=== PATIENT | female | born 1965 | race Caucasian/White ===

== ENCOUNTER 2018-01-03 12:56 | Emergency (ER) | payer OTHER ==
[~2018-01-03] VITALS: Ht 175.3 cm; Wt 113.4 kg
[2018-01-03] MEDS ORDERED: IBUPROFEN 600 MG TAB PO STA (13:38)
[2018-01-03] MEDS ORDERED: MEDROXYPROGESTE10 MG PO (13:42)
== END 2018-01-03 14:33 | disposition home or self-care (01) ==
LOC: FSED 12:56
DX: S83.91XA Sprain of unspecified site of right knee, initial encounter (principal); R03.0 Elevated blood-pressure reading, without diagnosis of hypertension; W10.8XXA Fall (on) (from) other stairs and steps, initial encounter; Y93.01 Activity, walking, marching and hiking; Y92.834 Zoological garden (Zoo) as the place of occurrence of the external cause
CPT/HCPCS: 99284